=== PATIENT | male | born 1990 | race Hispanic/Latino ===

== ENCOUNTER 2018-01-08 21:07 | Emergency (ER) | payer BC, OTHER ==
[~2018-01-08] VITALS: Ht 177.8 cm; Wt 104.3 kg
[~2018-01-08 21:07] MED LIST: LISINOPRIL10 MG PO; LISINOPRIL20 MG; MICROZIDE12.5 MG
== END 2018-01-08 21:35 | disposition home or self-care (01) ==
LOC: ER 21:07
DX: S06.0X9A Concussion with loss of consciousness of unspecified duration, initial encounter (principal); Y04.0XXA Assault by unarmed brawl or fight, initial encounter; Y92.89 Other specified places as the place of occurrence of the external cause; I10 Essential (primary) hypertension; E11.9 Type 2 diabetes mellitus without complications
CPT/HCPCS: 99282

== ENCOUNTER 2018-07-31 21:34 | Emergency (ER) | payer OTHER ==
[~2018-07-31] VITALS: Ht 177.8 cm; Wt 104.3 kg
== END 2018-07-31 22:20 | disposition home or self-care (01) ==
LOC: ER 21:34
DX: I10 Essential (primary) hypertension (principal); E11.9 Type 2 diabetes mellitus without complications; F17.210 Nicotine dependence, cigarettes, uncomplicated
CPT/HCPCS: 93005; 99283

== ENCOUNTER 2019-06-09 20:24 | Emergency (ER) | payer SELFPAY ==
[~2019-06-09] VITALS: Ht 177.8 cm; Wt 104.3 kg
[2019-06-09] MEDS ORDERED: LISINOPRIL 20 MG TAB ONE (20:44)
[2019-06-09] MEDS ORDERED: LISINOPRIL 20 MG TAB PO ONE (20:45)
[2019-06-09 21:08] VITALS: BP 150/100
== END 2019-06-09 21:11 | disposition home or self-care (01) ==
LOC: ER 20:24
DX: I10 Essential (primary) hypertension (principal)
CPT/HCPCS: 99282